=== PATIENT | female | born 1965 ===

== ENCOUNTER 2024-09-11 05:19 | Day surgery (SDC) | payer OTHER ==
[2024-09-04 08:59] LABS: HEMATOCRIT 36.3 % (36.0-45.00); HEMOGLOBIN 12.6 g/dL (12.0-15.00); MEAN CELL VOLUME 89.5 fL (80.00-100.00); MEAN CORPUSCULAR HEMOGLOBIN 31.1 pg (27.00-32.0); MEAN CORPUSCULAR HGB CONC 34.7 g/dl (32.0-36.0); PLATELET COUNT 248 K/uL (150-450); RED BLOOD COUNT 4.06 M/uL (4.00-6.00); RED CELL DISTRIBUTION WIDTH 14.1 % (11.5-14.5)
[2024-09-04 09:00] LABS: PH,URINE 6.5 (5.0-8.0); URINE APPEARANCE Clear; URINE BILIRRUBIN Negative (NEGATIVE); URINE BLOOD Negative; URINE COLOR Yellow; URINE GLUCOSE Negative (NEGATIVE); URINE KETONE Negative (NEGATIVE); URINE LEUKOCYTE Trace; URINE NITRATE Negative; URINE PROTEIN Negative (NEGATIVE)
[2024-09-04 09:01] LABS: URINE BACTERIA 8.5 uL (0.0-1933); URINE EPITHELIAL CELLS 4.1 uL (0.0-38.8); URINE RBC 4.5 uL (0.0-20.8); URINE WBC 4.7 uL (0.0-23.2)
[2024-09-04 09:06] LABS: URINE CAST 0.29 uL (0.0-1.40)
[2024-09-04 09:25] VITALS: BP 128/78
[2024-09-04 09:36] LABS: INR 1.02; PARTIAL THROMBOPLASTIN TIME 28.5 SECONDS (22.0-34.0); PROTHROMBIN TIME 11.1 SECONDS (9.0-11.5)
[2024-09-04 10:19] LABS: BILIRUBIN TOTAL 0.49 mg/dL (0.3-1.2); CALCIUM 9.5 mg/dL (8.5-10.1); CREATININE SERUM 0.62 mg/dL (0.55-1.02); GFR 98.52; GLOBULINA 3.2 G/DL (2.4-3.5); POTASSIUM 4.28 mEq/L (3.5-5.1); TOTAL PROTEIN 7.2 gm/dL (6.4-8.2)
[~2024-09-11] VITALS: Ht 154.9 cm; Wt 50.3 kg
[~2024-09-11 05:19] MED LIST: ATIVAN1 M1 PO; GLUMETZA500 MG PO; LIPITOR80 MG; RESTORIL15 MG PO; TRAZODONE HCL100 MG PO; VITAMIN B-121000 MC4; VITAMIN D310 MCG/1 M PO; ZESTRIL5 MG PO; ZOLOFT100 MG PO
[2024-09-11] MEDS ORDERED: CEFAZOLIN SODIUM 1,000 MG VIAL ONE (07:48)
[2024-09-11] MEDS ORDERED: NEOMYCIN/POLYMYXIN B/HYDROCORT 20 DR/ML BOTTLE OT ONE (07:50)
[2024-09-11] MEDS ORDERED: POVIDONE-IODINE SCRUB 118 ML BOTT TOP ONE (07:51)
[2024-09-11] MEDS ORDERED: POVIDONE-IODINE 118 ML BOTT TOP ONE (07:51)
[2024-09-11] MEDS ORDERED: LIDOCAINE HCL 1%/EPINEPHRINE 20ML VIAL IJ ONE (07:51)
[2024-09-11] MEDS ORDERED: EPINEPHRINE HCL/PF 1 MG/ML AMPUL ONE (07:51)
[2024-09-11] MEDS ORDERED: KETOROLAC TROMETHAMINE 60 MG VIAL IM PRN (10:45)
[2024-09-11] MEDS ORDERED: PROMETHAZINE HCL 25 MG/ML AMPUL IM PRN (10:45)
== END 2024-09-11 12:15 | disposition home or self-care (01) ==
LOC: CIR.AMB 05:19
PROVIDERS: ATTEND Otolaryngology Otology & Neurotology
DX: H66.91 Otitis media, unspecified, right ear (principal); H72.91 Unspecified perforation of tympanic membrane, right ear; H71.91 Unspecified cholesteatoma, right ear; D68.9 Coagulation defect, unspecified; Z03.818 Encounter for observation for suspected exposure to other biological agents ruled out; E11.9 Type 2 diabetes mellitus without complications